=== PATIENT | female | born 1965 | race Caucasian/White ===

== ENCOUNTER → 2016-10-20 08:55 | Outpatient (CLI) | payer OTHER ==
[2010-09-24 15:42] VITALS: BMI 22.4
== END | disposition home or self-care (01) ==
LOC: D.RT 08:55
DX: Z02.71 Encounter for disability determination (principal)

== ENCOUNTER 2017-02-15 11:54 | Inpatient (IN) | payer MEDICAID ==
[~2017-02-15] VITALS: Ht 167.6 cm; Wt 59.0 kg
[2017-02-15 13:25] VITALS: BP 134/82; BMI 21.0
[2017-02-15] MEDS ORDERED: CARAFATE1 G PO (13:46)
[2017-02-15] MEDS ORDERED: AMOXICILLIN500 M1 PO (13:48)
[2017-02-15] MEDS ORDERED: OMEPRAZOLE40 MG PO (13:49)
[2017-02-15] MEDS ORDERED: BIAXIN 500 MG500 MG PO (13:49)
[2017-02-15] MEDS ORDERED: BACLOFEN10 MG PO (13:49)
[2017-02-15] MEDS ORDERED: PROZAC20 MG PO (13:50)
[2017-02-15] MEDS ORDERED: HYDROCODONE-APA1 TAB (13:50)
--- NOTE | 2017-02-15 14:42 | NUR ---
PT IV SITED TO L FOREARM, TOLERATED WELL. HARVEYG C/D/I.
[2017-02-15 17:40] VITALS: BP 107/53
[2017-02-15 19:00] VITALS: BP 112/52
[2017-02-16 04:00] VITALS: BP 94/45
[2017-02-16 05:11] LABS: BASOPHILS 0.2 % (0-2); EOSINOPHILS 2.8 % (0-7); HEMATOCRIT 39.8 % (36.0-48.0); HEMOGLOBIN 13.1 g/dL (12-16); IMMATURE GRANULOCYTES 0.1 % (0-5); LYMPHOCYTES 26.2 % (15-50); MCH 29.1 pg (26.0-34.0); MCHC 32.9 g/dL (31.0-37.0); MCV 88.4 fL (80.0-100.0); MEAN PLATELET VOLUME 10.1 fL (7.4-10.4); MONOCYTES 11.1 % (2-11); NEUTROPHILS 59.6 % (40-80); PLATELET COUNT 241 10x3/uL (130-400); RDW 14.4 % (11.5-14.5); WBC 8.6 10x3/uL (4.8-10.8)
[2017-02-16 05:54] LABS: ALBUMIN 3.3 g/dL (3.4-5.0); ANION GAP 14.4 mmol/L (8-16); BILIRUBIN - TOTAL 0.9 mg/dL (0.2-1.3); CALCIUM 8.2 mg/dL (8.5-10.1); CARBON DIOXIDE 23.3 mmol/L (21.0-32.0); CREATININE - SERUM 0.9 mg/dL (0.6-1.3); POTASSIUM - SERUM 3.7 mmol/L (3.5-5.1); PROTEIN - SERUM 6.3 g/dL (6.4-8.2)
--- NOTE | 2017-02-16 06:50 | NUR ---
RECIEVED REPORT, ASSUMED CARE OF PT. NO COMPLAINTS AT THIS TIME. RESTING WITH DAUGHTER AT BEDSIDE. NO SIGNS OF ACUTE DISTRESS. BED IN LOWEST POSITION, SIDE RAILS UP X 2, CALL LIGHT WITHIN REACH.
[2017-02-16 09:46] VITALS: BP 95/44
[2017-02-16 11:04] VITALS: Ht 167.6 cm; Wt 59.0 kg
--- NOTE | 2017-02-16 11:36 | NUR ---
RATIONALE FOR SCD'S EXPLAINED. REFUSED SCD'S
[2017-02-16 12:55] VITALS: BP 93/34
[2017-02-16 16:42] VITALS: BP 107/53
--- NOTE | 2017-02-16 19:09 | NUR ---
PATIENT VERBALIZED NAUSEA. ADMINISTERED ZOFRAN. PATIENT DENIES OTHER NEEDS AT THIS TIME.
--- NOTE | 2017-02-16 20:00 | NUR ---
PATIENT STATED SHE IS NO LONGER NAUSEATED.
[2017-02-16 20:20] VITALS: BP 101/40
[2017-02-17 00:40] VITALS: BP 111/38
[2017-02-17 04:56] VITALS: BP 95/41
[2017-02-17 05:01] LABS: BASOPHILS 0.3 % (0-2); EOSINOPHILS 2.1 % (0-7); HEMATOCRIT 33.1 % (36.0-48.0); IMMATURE GRANULOCYTES 0.2 % (0-5); LYMPHOCYTES 33.5 % (15-50); MCH 29.5 pg (26.0-34.0); MCHC 33.2 g/dL (31.0-37.0); MCV 88.7 fL (80.0-100.0); MEAN PLATELET VOLUME 10.2 fL (7.4-10.4); MONOCYTES 12.8 % (2-11); NEUTROPHILS 51.1 % (40-80); PLATELET COUNT 215 10x3/uL (130-400); RBC 3.73 10x6/uL (4.00-5.40); RDW 14.4 % (11.5-14.5); WBC 6.6 10x3/uL (4.8-10.8)
[2017-02-17 05:29] LABS: ALBUMIN 2.7 g/dL (3.4-5.0); ALKALINE PHOSPHATASE 65 U/L (46-116); ALT (SGPT) 18 U/L (10-68); BILIRUBIN - TOTAL 0.84 mg/dL (0.2-1.3); CALCIUM 7.9 mg/dL (8.5-10.1); CARBON DIOXIDE 23.9 mmol/L (21.0-32.0); CHLORIDE - SERUM 108 mmol/L (98-107); CREATININE - SERUM 0.8 mg/dL (0.6-1.3); GLUCOSE 82 mg/dL (74-106); POTASSIUM - SERUM 3.8 mmol/L (3.5-5.1); PROTEIN - SERUM 5.6 g/dL (6.4-8.2); SODIUM 140 mmol/L (136-145); eGFR NON AFRICAN AMERICAN 80 mL/min (90-120)
[2017-02-17 05:33] LABS: CALC OSMOLALITY 274 mosm/kg (275-300); LIPASE 3546 U/L (73-393); UREA NITROGEN 5 mg/dL (7-18)
--- NOTE | 2017-02-17 06:45 | NUR ---
REPORT RECIEVED, ASSUMED CARE OF PT. RESTING IN BED, NO COMPLAINTS AT THIS TIME. L FOREARM IV INFUSING ORDERED, PATENT, DRSG C/D/I. BED IN LOWEST POSITION, SIDE RAILS UP X 2, CALL LIGHT WITHIN REACH.
[2017-02-17 09:39] VITALS: BP 113/58
[2017-02-17 13:06] VITALS: BP 95/48
[2017-02-17 16:59] VITALS: BP 124/44
--- NOTE | 2017-02-17 19:15 | NUR ---
IV TO LEFT FOREARM REPORTED TENDERNESS, FIRM IV SITE. D/C IV WITH CATHETER INTACT.
--- NOTE | 2017-02-17 19:40 | NUR ---
STARTED IV TO RIGHT WRIST, 20G, PATIENT TOLERATED WELL.
[2017-02-17 20:00] VITALS: BP 133/75
[2017-02-18 00:08] VITALS: BP 101/44
[2017-02-18 04:00] VITALS: BP 104/57
[2017-02-18 04:39] LABS: BASOPHILS 0.3 % (0-2); EOSINOPHILS 2.4 % (0-7); HEMATOCRIT 33.3 % (36.0-48.0); HEMOGLOBIN 11.1 g/dL (12-16); IMMATURE GRANULOCYTES 0.1 % (0-5); LYMPHOCYTES 26.4 % (15-50); MCH 29.2 pg (26.0-34.0); MCHC 33.3 g/dL (31.0-37.0); MCV 87.6 fL (80.0-100.0); MEAN PLATELET VOLUME 10.5 fL (7.4-10.4); MONOCYTES 9.9 % (2-11); NEUTROPHILS 60.9 % (40-80); PLATELET COUNT 239 10x3/uL (130-400); RDW 14.3 % (11.5-14.5); WBC 7.5 10x3/uL (4.8-10.8)
[2017-02-18 04:59] LABS: ALKALINE PHOSPHATASE 73 U/L (46-116); CALC OSMOLALITY 268 mosm/kg (275-300); CALCIUM 8.3 mg/dL (8.5-10.1); CARBON DIOXIDE 25.7 mmol/L (21.0-32.0); CHLORIDE - SERUM 106 mmol/L (98-107); CREATININE - SERUM 0.8 mg/dL (0.6-1.3); GLUCOSE 83 mg/dL (74-106); LIPASE 504 U/L (73-393); POTASSIUM - SERUM 3.9 mmol/L (3.5-5.1); PROTEIN - SERUM 5.8 g/dL (6.4-8.2); SODIUM 136 mmol/L (136-145); UREA NITROGEN 6 mg/dL (7-18); eGFR NON AFRICAN AMERICAN 80 mL/min (90-120)
[2017-02-18 05:03] LABS: ALT (SGPT) 31 U/L (10-68)
--- NOTE | 2017-02-18 07:00 | NUR ---
PT REC'D FROM VISHAL RUIZ. SITTING UP IN CHAIR AT BEDSIDE ON PHONE. AAOX4. NO COMPLAINTS OF PAIN. PT STATES SHE HAS BEEN COUGHING A LOT THOUGH AND SOMETIMES THAT HURTS HER. BOWEL SOUNDS ACTIVE X4 QUADS. PIV TO R WRIST FREE OF REDNESS AND SWELLING. NO COMPLAINTS, DENIES NEEDS. CPOC.
--- NOTE | 2017-02-18 07:15 | NUR ---
PATIENT IN BED WITH NO COMPLAINTS AT THIS TIME. IV INTACT. CALL LIGHTW ITHIN REACH.
[2017-02-18 08:03] VITALS: BP 118/50
[2017-02-18 12:42] VITALS: BP 131/89
--- NOTE | 2017-02-18 17:18 | NUR ---
IV DISCONTINUED WITH CATHETER INTACT AT THIS TIME PT GIVEN DISCHARGE INSTRUCTIONS. AT TAKEN VIA WHEELCHAIR AT THIS TIME
== END 2017-02-18 17:20 | disposition home or self-care (01) | DRG 440 ==
LOC: D.MS 11:54
PROVIDERS: ADMIT Family Medicine
DX: K85.90 Acute pancreatitis without necrosis or infection, unspecified (principal); F17.200 Nicotine dependence, unspecified, uncomplicated

== ENCOUNTER 2017-03-23 12:11 | Inpatient (IN) | payer MEDICAID ==
[~2017-03-23 12:11] MED LIST: AMOXICILLIN500 M1 PO; BACLOFEN10 MG PO; BIAXIN 500 MG500 MG PO; CARAFATE1 G PO; HYDROCODONE-APA1 TAB; OMEPRAZOLE40 MG PO; PROZAC20 MG PO
[2017-03-23] MEDS ORDERED: AMBIEN10 MG PO (12:56)
[2017-03-23 13:05] VITALS: BP 106/58; BMI 20.5
[2017-03-23 14:23] LABS: LIPASE 13855 U/L (73-393)
[2017-03-23 14:25] LABS: AMYLASE - SERUM 3506 U/L (25-115)
--- NOTE | 2017-03-23 14:30 | NUR ---
DR. GOLDMAN'S NURSE NOTIFIED OF CRITICAL LAB. WILL CONTINUE TO MONITOR.
[2017-03-23 16:00] VITALS: BP 111/57
--- NOTE | 2017-03-23 19:15 | NUR ---
DR MOTT IN ROOM TALKING TO PATIENT. DENIES ANY NEEDS.
[2017-03-23 20:10] VITALS: BP 103/59
--- NOTE | 2017-03-23 20:23 | NUR ---
ADMIN DILAUDID IV FOR C/O ABD PAIN LEVEL 8 ON NUMBER SCALE, DESCRIBED A STABBING PAIN AND ZOFRAN FOR C/O NAUSEA. REQUESTED LIGHTS OFF AND DOOR CLOSED TO SLEEP.
[2017-03-24 00:34] VITALS: BP 94/49
--- NOTE | 2017-03-24 03:23 | NUR ---
ADMIN ZOFRAN IV FOR C/O NAUSEA. GAVE HER SOME SWABS MOISTENED WITH WATER FOR C/O DRY MOUTH.
[2017-03-24 04:32] VITALS: BP 101/50
[2017-03-24 06:27] LABS: BASOPHILS 0.1 % (0-2); EOSINOPHILS 1.9 % (0-7); HEMATOCRIT 34.5 % (36.0-48.0); HEMOGLOBIN 11.1 g/dL (12-16); IMMATURE GRANULOCYTES 0.3 % (0-5); LYMPHOCYTES 21.7 % (15-50); MCH 28.9 pg (26.0-34.0); MCHC 32.2 g/dL (31.0-37.0); MCV 89.8 fL (80.0-100.0); MEAN PLATELET VOLUME 10.1 fL (7.4-10.4); MONOCYTES 9.2 % (2-11); NEUTROPHILS 66.8 % (40-80); PLATELET COUNT 224 10x3/uL (130-400); RBC 3.84 10x6/uL (4.00-5.40); WBC 8.6 10x3/uL (4.8-10.8)
[2017-03-24 07:04] LABS: ALBUMIN 3.1 g/dL (3.4-5.0); ANION GAP 11.7 mmol/L (8-16); BILIRUBIN - TOTAL 0.7 mg/dL (0.2-1.3); CALCIUM 8.2 mg/dL (8.5-10.1); CARBON DIOXIDE 24.3 mmol/L (21.0-32.0); CREATININE - SERUM 0.9 mg/dL (0.6-1.3); PROTEIN - SERUM 5.9 g/dL (6.4-8.2)
--- NOTE | 2017-03-24 08:00 | NUR ---
AM ROUNDS - PT IS IN BED AND AWAKE AT THIS TIME. PT IS ON ROOM AIR. IV TO RIGHT FA, NS AT 150CC/HR. BED AT LOWEST POSITION. CALL WYLIE IN USE/REACH. SIDE RAILS UP X2. PT C/O N/V. NO NEEDS AT THIS TIME. WILL CONTINUE TO MONITOR
[2017-03-24 08:56] VITALS: BP 95/51
[2017-03-24 10:59] VITALS: BMI 20.5
[2017-03-24 11:39] VITALS: BP 91/51
--- NOTE | 2017-03-24 14:33 | NUR ---
OFFERED PT SCDS FOR DVT PROPHLYLACTICS AND PT REFUSED R/T BEING UP AD [place] AND AMBULATING OFTEN. PT IS A SMOKER BUT REFUSES WANT/NEED FOR PATCH.
[2017-03-24 15:42] VITALS: BP 104/54
--- NOTE | 2017-03-24 19:25 | NUR ---
ALERT/AWAKE ORIENTED X 4. RATES ABD PAIN AT 4 ON NUMBER SCALE. DENIES ANY NEEDS. IV IN R FA WITH NS INFUSING AT 150ML/HR. REQUESTED CUP OF ICE. HAS CALL LIGHT AND BEDSIDE TABLE WITH PERSONAL ITEMS IN REACH.
--- NOTE | 2017-03-24 21:00 | NUR ---
ADMIN DILAUDID FOR C/O ABD PAIN LEVEL 8 ON NUMBER SCALE, DESCRIBED SHARP PAIN. NO OTHER NEEDS VOICED.
[2017-03-24 21:06] VITALS: BP 101/39
[2017-03-25 00:34] VITALS: BP 101/50
--- NOTE | 2017-03-25 03:05 | NUR ---
AMBULATED TO NURSES STATION. REQUESTED DILAUDID FOR PAIN.
[2017-03-25 03:06] VITALS: BP 124/48
--- NOTE | 2017-03-25 03:14 | NUR ---
PT CAME OUT OF HER ROOM ASKING FOR HER NURSE, REQUESTING HER AMBIEN AND PRN PAIN RX FOR ABDOMINAL PAIN. I OBTAINED V/S AT THIS TIME, ADDED A NEW BAG OF NS, GAVE PT HER AMBIEN AND DILAUDID. PT IS TEARFUL AND FRUSTRATED AND WANTS TO SLEEP. NO OTHER NEEDS AT THIS TIME. PT IS ALERT AND ORIENTED.
--- NOTE | 2017-03-25 07:10 | NUR ---
RECEIVED REPORT. ASSUMED CARE OF PATIENT. CALL LIGHT WITHIN REACH. RESTING WITH EYES CLOSED ON RIGHT LATERAL SIDE, EASILY AROUSED. RESP EVEN AND UNLABORED. NO DISTRESS. DENIES NEEDS AT THIS TIME.
[2017-03-25 07:48] LABS: BASOPHILS 0.1 % (0-2); EOSINOPHILS 0.8 % (0-7); HEMATOCRIT 33.3 % (36.0-48.0); HEMOGLOBIN 10.5 g/dL (12-16); IMMATURE GRANULOCYTES 0.2 % (0-5); LYMPHOCYTES 26.3 % (15-50); MCHC 31.5 g/dL (31.0-37.0); MEAN PLATELET VOLUME 11.2 fL (7.4-10.4); MONOCYTES 8.8 % (2-11); NEUTROPHILS 63.8 % (40-80); PLATELET COUNT 215 10x3/uL (130-400); RBC 3.62 10x6/uL (4.00-5.40); RDW 14.1 % (11.5-14.5); WBC 8.4 10x3/uL (4.8-10.8)
[2017-03-25 08:00] VITALS: BP 94/42
[2017-03-25 08:08] LABS: ALBUMIN 3.1 g/dL (3.4-5.0); ANION GAP 17.8 mmol/L (8-16); BILIRUBIN - TOTAL 0.5 mg/dL (0.2-1.3); CALCIUM 8.5 mg/dL (8.5-10.1); CARBON DIOXIDE 18.7 mmol/L (21.0-32.0); CREATININE - SERUM 0.9 mg/dL (0.6-1.3); POTASSIUM - SERUM 4.5 mmol/L (3.5-5.1); PROTEIN - SERUM 5.9 g/dL (6.4-8.2)
--- NOTE | 2017-03-25 12:10 | NUR ---
MEDICATED FOR PAIN AT THIS TIME. NO DISTRESS.
--- NOTE | 2017-03-25 15:00 | NUR ---
PATIENT OOB TO NURSE STATION. PATIENT AMBULATED AROUND NURSES STATION ONE FULL LAP AT THIS TIME. NO DISTRESS.
[2017-03-25 16:00] VITALS: BP 131/58
--- NOTE | 2017-03-25 17:57 | NUR ---
MEDICATED FOR NAUSEA AT THIS TIME. NO DISTRESS.
--- NOTE | 2017-03-25 19:30 | NUR ---
ARMORED CABLE MACHINE OPERATOR PRESENT IN ROOM TAKING VS. VS STABLE. IV IN R FA WITH NS INFUSING AT 150ML/HR. NO NEEDS VOICED. BED IS LOW WITH SR UP X2. CALL LIGHT IN REACH.
[2017-03-25 21:24] VITALS: BP 127/55
--- NOTE | 2017-03-25 21:35 | NUR ---
ADMIN DILAUDID IV FOR C/O ABD PAIN LEVEL 7 ON NUMBER SCALE, DESCRIBED SHARP, STABBING PAIN AND ZOFRAN IV FOR C/O NAUSEA. REQUESTED LIGHTS OFF AND DOOR CLOSED TO SLEEP.
[2017-03-26] VITALS (7 sets, daily range): BP systolic 98–124; BP diastolic 43–61
--- NOTE | 2017-03-26 02:10 | NUR ---
RESTING ON LEFT SIDE WITH EYES CLOSED. RR EVEN U/L. NO S/S OF DISCOMFORT. CL IN REACH.
--- NOTE | 2017-03-26 03:00 | NUR ---
RECEIVED REPORT FROM OFF GOING NURSE. PT RESTING WITH NO DISTRESS. CPOC.
--- NOTE | 2017-03-26 05:01 | NUR ---
PT WITH C/O PAIN 7/10 AND NAUSEA. MEDICATED WITH DILAUDID 2MG SIVP AND ZOFRAN 4MG SIVP. WILL MONITOR.
[2017-03-26 05:04] LABS: BASOPHILS 0.4 % (0-2); HEMATOCRIT 33.8 % (36.0-48.0); HEMOGLOBIN 10.7 g/dL (12-16); IMMATURE GRANULOCYTES 0.1 % (0-5); LYMPHOCYTES 38.6 % (15-50); MCH 28.8 pg (26.0-34.0); MCHC 31.7 g/dL (31.0-37.0); MCV 91.1 fL (80.0-100.0); MEAN PLATELET VOLUME 10.5 fL (7.4-10.4); MONOCYTES 11.6 % (2-11); NEUTROPHILS 45.3 % (40-80); PLATELET COUNT 258 10x3/uL (130-400); RBC 3.71 10x6/uL (4.00-5.40); WBC 7.5 10x3/uL (4.8-10.8)
[2017-03-26 05:24] LABS: ALBUMIN 2.9 g/dL (3.4-5.0); ANION GAP 14.6 mmol/L (8-16); BILIRUBIN - TOTAL 0.52 mg/dL (0.2-1.3); CALCIUM 8.4 mg/dL (8.5-10.1); CARBON DIOXIDE 19.8 mmol/L (21.0-32.0); POTASSIUM - SERUM 4.4 mmol/L (3.5-5.1); PROTEIN - SERUM 5.9 g/dL (6.4-8.2)
--- NOTE | 2017-03-26 07:57 | NUR ---
ASSESSMENT DONE. DENIES NEEDS.
--- NOTE | 2017-03-26 09:37 | NUR ---
RESTS WITH EYES CLOSED. IV PATENT. CALL LIGHT IN REACH. WILL CONT. PLAN OF CARE.
--- NOTE | 2017-03-26 17:16 | NUR ---
WITHOUT CHANGES OR DISTRESS NOTED AT THIS TIME. LAILA NEEDS.
--- NOTE | 2017-03-27 05:00 | NUR ---
PT HAS RESTED, AWAKENED ONCE WITH REQUEST FOR IV PAIN MED AROUND 4AM AND THEN WENT BACK TO SLEEP. IVF NS @ 150ML/HR INFUSING. ZOFRAN DRIP AT 4.7ML/HR INFUSING. CPOC, MONITOR AND PROVIDE SAFE ENVIRONMENT.
[2017-03-27 05:20] VITALS: BP 107/46
[2017-03-27 05:34] LABS: BASOPHILS 0.4 % (0-2); EOSINOPHILS 3.2 % (0-7); HEMATOCRIT 34.9 % (36.0-48.0); HEMOGLOBIN 11.1 g/dL (12-16); IMMATURE GRANULOCYTES 0.3 % (0-5); LYMPHOCYTES 26.1 % (15-50); MCH 28.7 pg (26.0-34.0); MCHC 31.8 g/dL (31.0-37.0); MCV 90.2 fL (80.0-100.0); MEAN PLATELET VOLUME 10.5 fL (7.4-10.4); MONOCYTES 10.3 % (2-11); NEUTROPHILS 59.7 % (40-80); PLATELET COUNT 277 10x3/uL (130-400); RBC 3.87 10x6/uL (4.00-5.40); RDW 13.9 % (11.5-14.5); WBC 7.1 10x3/uL (4.8-10.8)
[2017-03-27 06:23] LABS: ALBUMIN 3.1 g/dL (3.4-5.0); ANION GAP 17.6 mmol/L (8-16); BILIRUBIN - TOTAL 0.4 mg/dL (0.2-1.3); CALCIUM 8.3 mg/dL (8.5-10.1); CARBON DIOXIDE 18.7 mmol/L (21.0-32.0); POTASSIUM - SERUM 4.3 mmol/L (3.5-5.1); PROTEIN - SERUM 6.2 g/dL (6.4-8.2)
--- NOTE | 2017-03-27 07:34 | NUR ---
AM ROUNDS - PT IS IN BED AND APPEARS TO BE SLEEPING WITH EQUAL AND NON LABORED BREATHING. IV TO LEFT FA, NS AT 150CC/HR AND ZOFRAN AT 4.7. BED AT LOWEST POSITION. CALL WYLIE IN USE/REACH. SIDE RAILS UP X2. WILL CONTINUE TO MONITOR
[2017-03-27 08:23] VITALS: BP 102/51
[2017-03-27 11:55] VITALS: BP 129/60
--- NOTE | 2017-03-27 13:31 | NUR ---
PT IN BED AT THIS TIME WITH NO NEEDS. WILL CONTINUE TO MONITOR
--- NOTE | 2017-03-27 13:53 | NUR ---
Nutrition follow-up: Diet just advanced to regular low fat; pt still with nausea Labs reviewed Wt: 138# RDN will monitor patients tolerance of regular diet. Following.
[2017-03-27 15:53] VITALS: BP 134/74
[2017-03-27 19:00] VITALS: BP 113/58
--- NOTE | 2017-03-27 19:00 | NUR ---
ROUNDING NOTE: PT IS SLEEPING, BUT WOKE UP EASILY UPON ENTERING ROOM. PT HAS ZOFRAN DRIP RUNNING AT 4.7/HR TO RIGHT FOREARM. PT STATES THAT SHE RECENTLY RECEIVED PAIN MEDICINE AND IS FEELING SOMEWHAT BETTER. SHE TRIED TO EAT DINNER, BUT BECAME MORE NAUSEOUS. AT THIS MOMENT, SHE IS FEELING OKAY AND DENIES ANY NEEDS AT THIS TIME. WILL CONTINUE TO MONITOR.
[2017-03-28] VITALS: BP 115/52
[2017-03-28 04:00] VITALS: BP 139/67
--- NOTE | 2017-03-28 05:23 | NUR ---
UNABLE TO COLLECT STOOL SPECIMEN B/C PT HAS NOT HAD A BM DURING MY SHIFT.
--- NOTE | 2017-03-28 05:26 | NUR ---
PT HAS BEEN SLEEPING MOST OF THE NIGHT. SHE HAS DENIED NAUSEA AND HER ABD PAIN IS IMPROVED WELL. WILL CONT TO MONITOR.
[2017-03-28 05:58] LABS: BASOPHILS 0.3 % (0-2); EOSINOPHILS 4.1 % (0-7); HEMATOCRIT 35.6 % (36.0-48.0); HEMOGLOBIN 11.8 g/dL (12-16); IMMATURE GRANULOCYTES 0.3 % (0-5); LYMPHOCYTES 22.6 % (15-50); MCH 28.9 pg (26.0-34.0); MCHC 33.1 g/dL (31.0-37.0); MEAN PLATELET VOLUME 10.7 fL (7.4-10.4); MONOCYTES 11.4 % (2-11); NEUTROPHILS 61.3 % (40-80); PLATELET COUNT 269 10x3/uL (130-400); RBC 4.08 10x6/uL (4.00-5.40); RDW 13.8 % (11.5-14.5)
[2017-03-28 06:10] LABS: MCV 87.3 fL (80.0-100.0)
[2017-03-28 06:14] LABS: IGG SUBCLASS 1 407 mg/dL (248-810); IGG SUBCLASS 2 243 mg/dL (130-555); IGG SUBCLASS 3 68 mg/dL (15-102); IGG SUBCLASS 4 13 mg/dL (2-96)
[2017-03-28 06:25] LABS: ALBUMIN 2.9 g/dL (3.4-5.0); ALKALINE PHOSPHATASE 81 U/L (46-116); ALT (SGPT) 25 U/L (10-68); BILIRUBIN - TOTAL 0.61 mg/dL (0.2-1.3); CALC OSMOLALITY 274 mosm/kg (275-300); CALCIUM 8.8 mg/dL (8.5-10.1); CARBON DIOXIDE 21.4 mmol/L (21.0-32.0); CHLORIDE - SERUM 106 mmol/L (98-107); CREATININE - SERUM 0.8 mg/dL (0.6-1.3); GLUCOSE 83 mg/dL (74-106); LIPASE 1219 U/L (73-393); POTASSIUM - SERUM 3.5 mmol/L (3.5-5.1); PROTEIN - SERUM 6.1 g/dL (6.4-8.2); SODIUM 140 mmol/L (136-145); UREA NITROGEN 5 mg/dL (7-18); eGFR NON AFRICAN AMERICAN 80 mL/min (90-120)
--- NOTE | 2017-03-28 07:00 | NUR ---
PT'S IV GOING OFF, PUMP FIXED, PT A/O X4, RESP EVEN AND UNLABORED. BED LOW AND WHEELS LCOKED, BEDSIDE RAILS X2, CALL LIGHT IN REACH, PT DENIES ANY NEEDS AT THIS TIME. CALL LIGHT IN REACH, NAD NOTED, WILL CONTINUE TO MONITOR.
--- NOTE | 2017-03-28 08:14 | NUR ---
AM MEDS GIVEN AT THIS TIME. PT IN BED, PLAYING ON PHONE, DENIES ANY NEEDS AT THIS TIME. CALL LIGHT IN REACH, NAD NOTED, WILL CONTINUE TO MONITOR.
[2017-03-28 08:35] VITALS: BP 117/61
--- NOTE | 2017-03-28 09:21 | NUR ---
ADMINISTERED 2MG OF DILAUDID FOR PAIN LEVEL OF 7/10. PT DENIES ANY OTHER NEEDS AT THIS TIME. CALL LIGHT IN REACH, NAD NOTED, WILL CONTINUE TO MONITOR.
--- NOTE | 2017-03-28 10:57 | NUR ---
PT OUT OF SHOWER, HOOKED PT BACK UP TO ZOFRAN DRIP. PT DENIES ANY NEEDS AT THIS TIME. CALL LIGHT IN REACH, NAD NOTED, WILL CONTINUE PLAN OF CARE.
[2017-03-28 12:02] VITALS: BP 107/50
--- NOTE | 2017-03-28 14:32 | NUR ---
WAITING ON PHARMACY TO BRING PROCALAMINE, CALLED PHARMACY AND SPOKE WITH [place], THEY ARE GETTING PROCALAMINE READY.
--- NOTE | 2017-03-28 15:27 | NUR ---
NEW 22G IV STARTED TO RT FA X1 STICK. ZOFRAN DRIP SWITCHED TO SSG IV, AND PROCALAMINE STARTED INFUSING TO RT 20G FA IV. PT IN BED, DENIES ANY NEEDS AT THIS TIME. SUPERVISOR PIGMENT MAKING AT BEDSIDE TO GET VITAL. NAD NOTED, CALL LIGHT IN REACH, WILL CONTINUE TO MONITOR.
--- NOTE | 2017-03-28 17:29 | NUR ---
ADMINISTERED 2MG OF DILAUDID FOR PAIN LEVEL OF 6/10. PT C/O OF IV HURTING. IV SITE ASSESSED, IV IS INFILTRATED. IV D/C WITH TIP INTACT AT THIS TIME. WILL RESITE IV TO DIFFERENT SITE. PT DENIES ANY NEEDS AT THIS TIME. CALL LIGHT IN REACH, NAD NOTED, WILL CONTINUE TO MONITOR.
--- NOTE | 2017-03-28 18:17 | NUR ---
NEW 22G IV STARTED TO LT FA X1 STICK PT TOLERATED PROCEDURE WELL. PROCALAMINE STARTED INFUSING TO SITE. PT DENIES ANY NEEDS AT THIS TIME. COMPANY AT BEDSIDE CALL LIGHT IN REACH, NAD NOTED.
--- NOTE | 2017-03-28 19:05 | NUR ---
ROUNDING NOTE: PT STATES THAT SHE IS FEELING MUCH BETTER THAN YESTERDAY. SHE HAS BEEN TOLERATING SMALL AMOUNTS OF CLEAR LIQUIDS. PT REPORTS CONTINUED ABD PAIN AND INTERMITTENT NAUSEA, BUT THIS IS IMPROVED. PT HAS ZOFRAN DRIP AT 4.7CC/HR TO RIGHT FOREARM AND PROCAL @ 100CC/HR TO LEFT FOREARM. PT IS REQUESTING PAIN MEDS WITH HER NIGHT TIME MED PASS. WILL CONT TO FOLLOW.
[2017-03-29 01:06] VITALS: BP 122/59
[2017-03-29 05:07] VITALS: BP 94/56
--- NOTE | 2017-03-29 05:22 | NUR ---
PT HAS BEEN SLEEPING THROUGHOUT THE NIGHT AFTER THE BEDTIME MED PASS. PT HAS HAD NO ISSUES OR COMPLAINTS. WILL CONT TO MONITOR.
--- NOTE | 2017-03-29 07:53 | NUR ---
AM ROUNDS - PT IN BED AND APPEARS TO BE SLEEPING WITH EQUALA ND NON LABORED BREATHING. IV TO RIGTH FA, ZOFRAN 4.7CC/HR. IV TO LEFT FA, PROCALAMINE AT 100CC/HR. BED AT LOWEST POSITION. CALL WYLIE IN USE/REACH. SIDE RAILS UP X2. WILL CONTINUE TO MONITOR
[2017-03-29 08:34] VITALS: BP 118/90
[2017-03-29 12:44] VITALS: BP 120/71
--- NOTE | 2017-03-29 12:58 | NUR ---
Nutrition follow-up: Diet: Clear liquids; unable to advance due to increased abdominal pain ProcalAmine ordered @ 100 ml/hr Labs reviewed Wt: 136# ProcalAmine PPN providing.: 588 kcal 72 gm protein RDN following.
[2017-03-29 16:19] VITALS: BP 125/68
--- NOTE | 2017-03-29 17:50 | NUR ---
PT IN BED AT THIS TIME WITH NO NEEDS. [facility] ONTINUE TO MONITOR
[2017-03-29 21:42] VITALS: BP 124/65
--- NOTE | 2017-03-29 21:57 | NUR ---
PT LYING IN BED, AWAKE, ALERT, ORIENTED, STATES SHE IS FEELING BETTER, ASKING FOR VANILLA PUDDING. PT IS ALSO WANTING TO WAIT ON HER SCHEDULED AMBIEN UNTIL SHE IS CLOSER TO WANTING TO SLEEP. NO OTHER NEEDS, CONTINUE TO MONITOR CLOSELY.
--- NOTE | 2017-03-30 04:36 | NUR ---
OXIDATION ENGINEER AT BEDSIDE TO OBTAIN VITALS, WILL CONTINUE TO MONITOR. CALL LIGHT IN REACH.
[2017-03-30 05:18] LABS: BASOPHILS 0.4 % (0-2); EOSINOPHILS 4.5 % (0-7); HEMOGLOBIN 13.1 g/dL (12-16); IMMATURE GRANULOCYTES 0.1 % (0-5); LYMPHOCYTES 35.5 % (15-50); MCH 29.1 pg (26.0-34.0); MCHC 33.6 g/dL (31.0-37.0); MCV 86.7 fL (80.0-100.0); MEAN PLATELET VOLUME 10.2 fL (7.4-10.4); NEUTROPHILS 45.5 % (40-80); PLATELET COUNT 272 10x3/uL (130-400); WBC 7.1 10x3/uL (4.8-10.8)
[2017-03-30 05:46] LABS: ALBUMIN 2.9 g/dL (3.4-5.0); ALKALINE PHOSPHATASE 78 U/L (46-116); ALT (SGPT) 20 U/L (10-68); BILIRUBIN - TOTAL 0.43 mg/dL (0.2-1.3); CALCIUM 8.3 mg/dL (8.5-10.1); CHLORIDE - SERUM 104 mmol/L (98-107); CREATININE - SERUM 0.7 mg/dL (0.6-1.3); GLUCOSE 102 mg/dL (74-106); LIPASE 281 U/L (73-393); POTASSIUM - SERUM 3.8 mmol/L (3.5-5.1); PROTEIN - SERUM 6.2 g/dL (6.4-8.2); SODIUM 140 mmol/L (136-145); eGFR NON AFRICAN AMERICAN > 90 mL/min (90-120)
[2017-03-30 05:51] LABS: CALC OSMOLALITY 277 mosm/kg (275-300); CARBON DIOXIDE 30.4 mmol/L (21.0-32.0); UREA NITROGEN 10 mg/dL (7-18)
--- NOTE | 2017-03-30 07:44 | NUR ---
AM ROUNDS - PT IN BED AND APPEARS TO BE SLEEPING WITH EQUALA ND NON LABORED BREATHING. IV TO RIGHT FA, ZOFRAN 4.7CC/HR AND LEFT FA, PROCALAMINE AT 100CC/HR. PT IS ON ROOM AIR. BED AT LOWEST POSITION. CALL WYLIE IN USE/REACH. SIDE RAILS UP X2. WILL CONTINUE TO MONITOR
[2017-03-30 08:53] VITALS: BP 119/75
[2017-03-30 11:57] VITALS: BP 117/79
[2017-03-30] MEDS ORDERED: HYDROCODONE-APA1 TAB PO (13:35)
[2017-03-30] MEDS ORDERED: ZOFRAN4 MG PO (13:36)
[2017-03-30] MEDS ORDERED: Pancrease 5000,17,00 PO (13:37)
--- NOTE | 2017-03-30 15:24 | NUR ---
D/C - WRITTEN AND VERBAL D/C INSTRUCTIONS GIVEN TO PT. IV TO LEFT AND RIGHT FA D/C, CATH TIP INTACT, 2X2 DRESSING PLACED AND SECURED WITH TAPE. PT TOLERATED WELL. PT LEFT FLOOR VIA WHEELCHAIR. WILL D/C
--- NOTE | 2017-03-30 17:05 | NUR ---
Patient Name: SHARON DENISE Admission Status: Elective Accout number: [id number] Admission Date: 03-24-2017 : 1965 Admission Diagnosis:UNSPECIFIED ABDOMINAL PAIN Attending: OHRTENCIA FRENCH Current LOS: 6 Anticipated DC Date: 03-30-2017 Planned Disposition: Home Primary Insurance: MEDICAID [place] Discharge Planning Comments: * Is the patient Alert and Oriented? Yes 0 * How many steps to enter\exit or inside your home? NONE 0 * PCP DR. FRENCH 0 * Pharmacy [facility], [facility] 0 * Preadmission Environment Home with Family 0 * ADLs Independent 0 * Equipment None 0 * Other Equipment NO MEDICAL EQUIPMENT PROVIDER PREFERNECE 0 * List name and contact numbers for known caregivers / representatives who currently or will assist patient after discharge: RENETTA HECTOR, SPOUSE, 0 * Community resources currently utilized None 0 * Please name any agencies selected above. NONE 0 * Additional services required to return to the preadmission environment? No 0 * Can the patient safely return to the preadmission environment? Yes 0 * Has this patient been hospitalized within the prior 30 days at any hospital? Yes 0 CM MET WITH PT IN ROOM TO DISCUSS DISCHARGE PLANNING AND NEEDS. PT REPORTS LIVING AT HOME INDEPENDENTLY WITH HER SPOUSE. PT HAS NO MEDICAL EQUIPMENT AND NO OUTSIDE SERVICES ASSISTING IN THE HOME. CM DISCUSSED AVAILABILITY OF HOME HEALTH, REHAB SERVICES AND MEDICAL EQUIPMENT. PT DENIES DISCHARGE NEEDS, REPORTS HER SPOUSE WILL PICK HER UP FOR DISCHARGE HOME. Oncology Patient Navigator: Tex Fontanez
== END 2017-03-30 15:26 | disposition home or self-care (01) | DRG 440 ==
LOC: D.LAB 12:11 → D.M2 12:26 → OBSVTIME 12:27 → D.M2 03-24 07:33
PROVIDERS: Internal Medicine Gastroenterology; ADMIT Family Medicine
DX: K85.00 Idiopathic acute pancreatitis without necrosis or infection (principal); F32.9 Major depressive disorder, single episode, unspecified; Z72.0 Tobacco use

== ENCOUNTER → 2019-03-18 08:14 | Outpatient (CLI) | payer BC ==
[~2019-03-18 08:14] MED LIST changes: +AMBIEN10 MG PO; +HYDROCODONE-APA1 TAB PO; +Pancrease 5000,17,00 PO; +ZOFRAN4 MG PO
--- NOTE | 2019-03-26 11:41 | ST ---
PATIENT:SHARON DENISE MEDICAL RECORD: [id number] SEX: F LOCATION:[facility] ORDER #: ADMISSION DATE: 03/18/19 AGE OF PATIENT: 53 REFERRING PHYSICIAN: INTERPRETING PHYSICIAN: LUCIO ESQUIVEL MD DATE OF SERVICE: 03/18/2019 Nuclear Stress Test INDICATIONS: Chest pain, abnormal ECG, family history of coronary artery disease. She was exercised on standard Lexiscan protocol with 33 mCi of sestamibi injected at peak stress, 10 mCi used previously for rest images. FINDINGS: Gated SPECT reveals preserved ejection fraction at 61% with good wall motion and thickening and brightening throughout all segments. SPECT Imaging: Cardiolite was used as myocardial fusion agent. There is homogeneous uptake throughout all segments at rest and stress with no evidence of inducible ischemia or previous infarction. OVERALL IMPRESSION: 1. This is a normal nuclear stress test with no evidence of inducible ischemia or previous infarction. 2. Gated SPECT reveals a preserved ejection fraction at 61%. In this patient with ongoing symptomatology, the current scan does not suggest the presence of hemodynamically significant coronary artery disease. Evaluate noncardiac etiology of chest pain. TRANSINT:[id number] Voice Confirmation ID: [id number] DOCUMENT ID: [id number] LUCIO ESQUIVEL MD at 1141 CC: HORTENCIA FRENCH MD [id number] DICTATION DATE: 03/19/19 1025 POCKET CREASER: 03/20/19 0003 DEP CLI 03/18/19 [id number] [place] [address]
== END | disposition home or self-care (01) ==
LOC: D.HCCARDIO 08:14
PROVIDERS: ATTEND Internal Medicine Interventional Cardiology
DX: I20.9 Angina pectoris, unspecified (principal)

== ENCOUNTER 2019-06-17 10:24 | Emergency (ER) | payer MEDICAID ==
[~2019-06-17] VITALS: Ht 167.6 cm; Wt 63.6 kg
[2019-06-17 10:30] VITALS: Ht 167.6 cm; Wt 63.6 kg
[2019-06-17] MEDS ORDERED: CELEBREX 100 M100 MG PO (10:34)
[2019-06-17] MEDS ORDERED: SEROQUEL25 MG PO (10:35)
[2019-06-17 11:11] LABS: BASOPHILS 0.2 % (0-2); EOSINOPHILS 1.7 % (0-7); HEMATOCRIT 41.3 % (36.0-48.0); HEMOGLOBIN 13.7 g/dL (12-16); IMMATURE GRANULOCYTES 0.2 % (0-5); LYMPHOCYTES 24.5 % (15-50); MCH 28.8 pg (26.0-34.0); MCHC 33.2 g/dL (31.0-37.0); MCV 86.9 fL (80.0-100.0); MEAN PLATELET VOLUME 9.9 fL (7.4-10.4); MONOCYTES 9.2 % (2-11); NEUTROPHILS 64.2 % (40-80); RBC 4.75 10x6/uL (4.00-5.40); RDW 13.9 % (11.5-14.5); WBC 10.7 10x3/uL (4.8-10.8)
[2019-06-17 11:13] LABS: PLATELET COUNT 333 10x3/uL (130-400)
[2019-06-17 11:16] LABS: CALC OSMOLALITY 277 mosm/kg (275-300); CALCIUM 9.7 mg/dL (8.5-10.1); CARBON DIOXIDE 30.9 mmol/L (21.0-32.0); CHLORIDE - SERUM 102 mmol/L (98-107); CREATININE - SERUM 1.3 mg/dL (0.6-1.3); GLUCOSE 87 mg/dL (74-106); POTASSIUM - SERUM 3.7 mmol/L (3.5-5.1); SODIUM 140 mmol/L (136-145); UREA NITROGEN 12 mg/dL (7-18); eGFR NON AFRICAN AMERICAN 45 mL/min (90-120)
[2019-06-17 11:17] LABS: APTT 28.7 SECONDS (22.8-39.4); INR 0.98 (0.85-1.17); PROTIME 12.9 SECONDS (11.6-15.0)
[2019-06-17 11:33] LABS: ALBUMIN 3.7 g/dL (3.4-5.0); ALKALINE PHOSPHATASE 115 U/L (46-116); ALT (SGPT) 26 U/L (10-68); BILIRUBIN - TOTAL 0.67 mg/dL (0.2-1.3); CKMB 0.8 U/L (0.0-3.6); CREATINE KINASE 125 UL (21-215); MAGNESIUM - SERUM 2.2 mg/dL (1.8-2.4); PROTEIN - SERUM 7.8 g/dL (6.4-8.2); THYROID STIMULATING HORMONE 1.27 uIU/mL (0.36-3.74); TROPONIN-I < 0.017 ng/mL (0.000-0.060)
[2019-06-17 13:15] LABS: APPEARANCE CLEAR (CLEAR); BILIRUBIN NEGATIVE (NEGATIVE); COLOR YELLOW (YELLOW); GLUCOSE NEGATIVE (NEGATIVE); KETONE NEGATIVE (NEGATIVE); NITRITE NEGATIVE (NEGATIVE); PROTEIN NEGATIVE (NEGATIVE); SPECIFIC GRAVITY 1.005 (1.005-1.020); UROBILINOGEN NORMAL (NORMAL)
[2019-06-17] MEDS ORDERED: MEDROL DOSE PACK4 MG PO (13:48)
[2019-06-17 14:09] VITALS: BP 126/80
== END 2019-06-17 14:09 | disposition home or self-care (01) ==
LOC: D.ER 10:24
PROVIDERS: Family Medicine
DX: M25.811 Other specified joint disorders, right shoulder (principal); R20.2 Paresthesia of skin; K21.9 Gastro-esophageal reflux disease without esophagitis

== ENCOUNTER → 2020-11-24 | Emergency (ER) | payer BC ==
[2019-06-17 10:30] VITALS: BMI 22.6
[~2020-11-24] MED LIST changes: +AUGMENTIN 875-11 TAB PO; +CELEBREX 100 M100 MG PO; +MEDROL DOSE PACK4 MG PO; +SEROQUEL25 MG PO
[2020-11-24 20:08] VITALS: BP 143/83
== END | disposition home or self-care (01) ==
LOC: D.ER 18:08
DX: S51.851A Open bite of right forearm, initial encounter (principal); Z79.01 Long term (current) use of anticoagulants; K21.9 Gastro-esophageal reflux disease without esophagitis; W54.0XXA Bitten by dog, initial encounter; Y93.9 Activity, unspecified; Y92.9 Unspecified place or not applicable